=== PATIENT | female | born 1980 | race Caucasian/White ===

== ENCOUNTER 2020-08-27 13:06 | Outpatient (CLI) | payer BC, SELFPAY ==
--- NOTE | ~2020-08-27 | MM_ITS ---
EXAMINATION: MM screening yinka BI w madiha HISTORY: Screening mammogram, family history of breast cancer in her mother. TECHNIQUE: Craniocaudal and mediolateral oblique 3-D tomosynthesis images were obtained and synthetic 2-D images were generated. CAD analysis was submitted and interpreted. COMPARISON: 05/21/2019, 12/09/2017 BREAST PARENCHYMAL COMPOSITION: The breasts are heterogeneously dense, which may obscure small masses . FINDINGS: There is no evidence of suspicious mass, calcification, or architectural distortion to sugg est malignancy in either breast. There has been no suspicious interval change. IMPRESSION: 1. No mammographic evidence of malignancy. 2. Recommend routine screening mammography in one year. BI-RADS Category 1: Negative Reviewed, dictated and finalized at location A. OR FRONT END WEB DEVELOPER
== END 2020-08-27 13:07 | disposition home or self-care (01) ==
PROVIDERS: PCP Nurse Practitioner Family; Visit Provider Nurse Practitioner Family
DX: Z12.31 Encounter for screening mammogram for malignant neoplasm of breast (principal)
CPT/HCPCS: 77063; 77067

== ENCOUNTER 2021-04-27 09:04 | Outpatient (CLI) | payer BC, SELFPAY ==
--- NOTE | ~2021-04-27 | XR_ITS ---
EXAMINATION: XR UGIAC w barium swallow DATE: 04/27/2021 09:40 INDICATION: Reflux. Dysphagia. TECHNIQUE: The patient drank thick barium, gas-producing crystals, and thin barium. Fluoroscopy of th e esophagus, stomach, and proximal small bowel was performed. Fluoroscopy exposure time was 0.6 minut es. The total number of images was 281. Total dose-area product was 2.679 Gy-cm^2. COMPARISON: CT abdomen 01/05/2004 FINDINGS: There is no mass or stricture of the esophagus. Esophageal motility is normal. There is no hiatal hernia. There was no gastroesophageal reflux with provocative maneuvers. The stomach and proxi mal small bowel show normal folding patterns. IMPRESSION: 1. Normal upper gastrointestinal series and esophagram. Reviewed, dictated and finalized at location A.
== END 2021-04-27 09:05 | disposition home or self-care (01) ==
PROVIDERS: PCP Nurse Practitioner Family; Visit Provider Surgery
DX: K44.9 Diaphragmatic hernia without obstruction or gangrene (principal)
CPT/HCPCS: 74246

== ENCOUNTER 2021-06-05 01:33 | Day surgery (SDC) | payer BC, SELFPAY ==
[2021-05-25 13:29] VITALS: BMI 33.8
[2021-06-05 06:51] VITALS: BP 128/85; PULSE 91; RESP 16; TEMP 35.8; O2SAT 99; BMI 36.2
[2021-06-05] MEDS: LACTATED RINGERS 1,000 ML 150 ML IV CONT (07:06)
--- NOTE | 2021-06-05 07:21 | WPDANESEPPF ---
Anes - Initial Pre Proc Eval Procedure: Operation Date: 06/05/21 08:00 Proposed Procedures p Esophagogastroduodenoscopy - Alejo Snell MD Date/Time: 06/05/21 07:21 Surgeon: Alejo Snell MD Pre Op Diagnosis: GERD, dysphagia Patient Data Age: 40 Gender: F Height: 1.57 m Weight: 89.8 kg Last Vital Signs Temp 35.8 C L 06/05/21 06:51 Pulse 91 06/05/21 06:51 Resp 16 06/05/21 06:51 BP 128/85 06/05/21 06:51 Pulse Ox 99 06/05/21 06:51 Allergies Allergy/AdvReac Type Severity Reaction Status Date / Time mushroom Allergy Severe Swelling Verified 06/05/21 06:51 shellfish derived Allergy Severe Anaphylaxis Verified 06/05/21 06:51 Penicillins Allergy Unknown Swelling, Verified 06/05/21 06:51 Itching Honey Bee Allergy Severe SWELLING,IT Uncoded 06/05/21 06:51 CH PLASTIC TAPE Allergy Unknown Itching Uncoded 06/05/21 06:51 Home Medications Medication Instructions Recorded Confirmed Type omeprazole magnesium 20 mg 20 mg PO DAILY #30 tablet 04/17/21 06/05/21 Rx tablet,delayed release rimegepant [Nurtec ODT] 75 mg PO PRN PRN 05/25/21 06/05/21 History Patient hx anesthesia problems: none Family hx anesthesia problems: none Results Review: All pre-operative results and documents have been reviewed as part of the pre-operative evaluation. [facility] Past Medical History Medical History High cholesterol Surgical History Surgical History History of appendectomy OA 2004 History of salpingectomy Bilateral fallopian tube removal 2016 OA Family History Family History Father Diabetes mellitus Heart disease Lung cancer Mother Breast cancer Social History Social History Years smoked: 15 Smoking status: Light tobacco smoker Tobacco type: cigarettes Alcohol intake: never Substance use: never Substance use type: does not use Living arrangements: with family Additional occupation/education comments: [employer] Spiritual care concerns: No Anes - Eval Final PreProcedure Day of Procedure 06/05/21 07:21 Patient weight: obese Heart: regular rate and rhythm Lungs: clear to auscultation Airway: Mallampati scale class II Neurological: alert and oriented Last oral intake: >/= 8 hours ASA classification: II Emergent: no Anesthetic plan: proceed Anesthesia type and monitoring: general GIVS and standard monitoring Results Review: All pre-operative results and documents have been reviewed as part of the pre-operative evaluation. Informed Consent: The patient's anesthetic plan and its attendant risks and benefits were discussed with the patient/family/POA. Questions were solicited and answers provided to the satisfaction of the patient/family/POA.
--- NOTE | 2021-06-05 07:45 | PM.HPGS ---
History of Present Illness History of Present Illness Consent: Risks, benefits, and alternatives have been discussed and questions answered. Patient agrees to proceed with procedure. Chief complaint: GERD, dysphagia Narrative: Zulma Chapa is a 40 year old female with dysphagia, MRI abdomen showed hiatal hernia however UGI series was described as normal, never had EGD. PPI did not make much of difference Review of Systems Constitutional: Constitutional: Denies headache(s) and Denies weakness Eyes: Eyes: Denies blurry vision ENT: Reports Normal hearing present, Denies headache(s) and Denies neck pain Cardiovascular: Cardiovascular: Denies chest pain and Denies dyspnea Respiratory: Respiratory: Denies dyspnea Gastrointestinal: Gastrointestinal: Reports no additional gastrointestinal complaints Genitourinary: Genitourinary: Denies dysuria Musculoskeletal: Musculoskeletal: Denies neck pain Integumentary/Breasts: Skin/Breast: Denies dry skin Neurologic: Reports Normal hearing present, Denies headache(s) and Denies weakness Psychiatric: Psychiatric: Denies anxiety Endocrine: Endocrine: Denies change in body appearance Hematologic/Lymphatic: Hematologic/Lymphatic: Denies easy bleeding Allergic/Immunologic: Allergic/Immunologic: Denies urticaria PMFSH Past Medical History Medical History High cholesterol Surgical History Surgical History History of appendectomy OA 2004 History of salpingectomy Bilateral fallopian tube removal 2016 OA Family History Family History Father Diabetes mellitus Heart disease Lung cancer Mother Breast cancer Social History Social History Years smoked: 15 Smoking status: Light tobacco smoker Tobacco type: cigarettes Alcohol intake: never Substance use: never Substance use type: does not use Living arrangements: with family Additional occupation/education comments: [employer] Spiritual care concerns: No Meds Home Medications and Allergies Home Medications Medication Instructions Recorded Confirmed Type omeprazole magnesium 20 mg 20 mg PO DAILY #30 tablet 04/17/21 06/05/21 Rx tablet,delayed release rimegepant [Nurtec ODT] 75 mg PO PRN PRN 05/25/21 06/05/21 History Allergies Allergy/AdvReac Type Severity Reaction Status Date / Time mushroom Allergy Severe Swelling Verified 06/05/21 06:51 shellfish derived Allergy Severe Anaphylaxis Verified 06/05/21 06:51 Penicillins Allergy Unknown Swelling, Verified 06/05/21 06:51 Itching Honey Bee Allergy Severe SWELLING,IT Uncoded 06/05/21 06:51 CH PLASTIC TAPE Allergy Unknown Itching Uncoded 06/05/21 06:51 Vital Signs Vital Signs - 24 hr 06/05/21 06:51 Temperature 96.5 F L Pulse Rate 91 Respiratory Rate 16 Blood Pressure 128/85 Pulse Oximetry 99 Exam Const: General: comfortable and no acute distress HENMT: General nose exam: Normal nares present Eyes: General: appearance normal, both eyes and all related structures Neck: Neck: no JVD Resp: Auscultation: clear to auscultation bilaterally Cardio: Rate: regular rate Rhythm: regular rhythm GI: Inspection: non-distended GI Palp: Yes Soft to palpation Skin: General skin exam: normal color Neuro: General: gait normal Speech: normal speech Extrem: General: normal to inspection Psych: Mental Status: mental status grossly normal Assessment and Plan Assessment and plan (1) Dysphagia: Code(s): R13.10 - Dysphagia, unspecified Status: Acute Assessment and Plan: egd to assess, will get biopsies
[2021-06-05 08:10] VITALS: BP 146/85; PULSE 108; RESP 17; O2SAT 97
[2021-06-05 08:20] VITALS: BP 126/85; PULSE 88; RESP 13; O2SAT 98
[2021-06-05 08:30] VITALS: BP 117/92; PULSE 89; RESP 18; O2SAT 99
== END 2021-06-05 08:39 | disposition home or self-care (01) ==
PROVIDERS: PCP Nurse Practitioner Family; Visit Provider Internal Medicine Gastroenterology
PROC: 0DJ08ZZ Inspection of Upper Intestinal Tract, Via Natural or Artificial Opening Endoscopic (ICD-10-PCS; CPT 43235; principal; 2021-06-05 08:00)
DX: R13.19 Other dysphagia (principal); K44.9 Diaphragmatic hernia without obstruction or gangrene; K22.2 Esophageal obstruction; K29.70 Gastritis, unspecified, without bleeding; K21.9 Gastro-esophageal reflux disease without esophagitis; E78.00 Pure hypercholesterolemia, unspecified; F17.290 Nicotine dependence, other tobacco product, uncomplicated; E66.9 Obesity, unspecified; Z68.36 Body mass index [BMI] 36.0-36.9, adult
CPT/HCPCS: 43249; 43239; 88305; C1726; J2704; J7120

== ENCOUNTER 2022-08-16 14:07 | Outpatient (CLI) | payer BC, SELFPAY ==
--- NOTE | ~2022-08-16 | MMUS_ITS ---
EXAMINATION: MM diagnostic yinka BI w madiha, US breast BI complete HISTORY: Referring physician reportedly palpated a right breast lump patient is unsure of location. P atblanca's mother and grandmother had breast cancer. TECHNIQUE: ML, MLO and CC 3-D tomosynthesis images of both breasts were performed and synthetic 2-D i mages were generated. CAD analysis was submitted and interpreted. High resolution bilateral complete breast ultrasound including all 4 quadrants and subareolar areas was performed. COMPARISON: 05/21/2019, 12/09/2017 bilateral screening mammogram examinations BREAST PARENCHYMAL COMPOSITION: There are scattered areas of fibroglandular density. FINDINGS: MAMMOGRAPHIC FINDINGS: No suspicious mass or architectural distortion, malignant calcification, skin thickening or retractio n or significant new or developing density is detected. ULTRASOUND: No suspicious mass or shadowing of either breast is detected. Right breast: 12:00 1 cm from nipple: 3.4 x 5.3 x 5.5 mm simple cyst with through transmission posterior enhancemen t Left breast: 2.8 x 3.6 mm cyst IMPRESSION: 1. No mammographic evidence of malignancy 2. Routine annual mammographic screening is recommended. BIRADS Category 2: Benign Reviewed, dictated and finalized at location A. NRY SUPERVISOR IMPRESSION: 1. No mammographic evidence of malignancy 2. Routine annual mammographic screening is recommended. BIRADS Category 2: Benign
== END 2022-08-16 14:08 | disposition home or self-care (01) ==
LOC: ANHIMG 14:11
PROVIDERS: PCP Nurse Practitioner Family; Visit Provider Nurse Practitioner
DX: N63.0 Unspecified lump in unspecified breast (principal); Z80.3 Family history of malignant neoplasm of breast; N60.02 Solitary cyst of left breast
CPT/HCPCS: 76641; 77062; 77066; G0279

== ENCOUNTER 2024-07-05 13:25 | Emergency (ER) | payer OTHER, SELFPAY ==
--- NOTE | ~2024-07-05 | XR_ITS ---
EXAMINATION: XR lumbar spine 2-3V DATE: 07/05/2024 14:41 INDICATION: Low back and left hip pain TECHNIQUE: Anteroposterior and lateral views of the lumbar spine, and cone-down lateral view of the l umbosacral junction were obtained. COMPARISON: None. FINDINGS: 14 degrees lumbar dextroscoliosis. Sagittal alignment is normal. Vertebral body heights are normal. M ild left-sided disc height loss at L1-L2 through L3-L4. Developmentally unfused S1 spinous process. S urgical clip in the right lower quadrant. Lung bases are clear with no pleural effusion. Heart size i s normal. IMPRESSION: 1. 14 degrees lumbar dextroscoliosis with mild spondylosis. Reviewed, dictated and finalized at location B. BOILER
[2024-07-05 13:51] VITALS: BP 141/85; PULSE 119; RESP 16; TEMP 36.9; O2SAT 98
--- NOTE | 2024-07-05 14:17 | ED.BACK ---
HPI - Back Pain/Injury General Chief Complaint: Back Pain/Injury Stated Complaint: back and hip pain Time Seen by Provider: 07/05/24 14:17 Source: patient Mode of arrival: ambulatory Limitations: no limitations History of Present Illness HPI Narrative: 43 yo female presented for complaint of low back pain for 2 days and left hip pain for 3 weeks. States the hip pain started after painting basement. States the back pain is worse when she rises from a sitting to standing position. States feels better when she has been standing for a few moments. Pain to the back is described as ?locked up. ? She is taking ibuprofen and Aleve. She sees a chiropractor weekly, last saw them 3 days ago. Related Data Home Medications ?Medication ?Instructions ?Recorded ?Confirmed ?Last Taken ?Type rimegepant 75 mg disintegrating 75 mg PO PRN PRN Migraine Headache 05/25/21 03/23/24 Unknown History tablet (Nurtec ODT) zavegepant 10 mg/actuation nasal 10 mg intranasal ONCE PRN 09/21/23 03/23/24 Unknown History spray (Zavzpret) Allergies Allergy/AdvReac Type Severity Reaction Status Date / Time mushroom Allergy Severe Swelling Verified 07/05/24 14:18 shellfish derived Allergy Severe Anaphylaxis Verified 07/05/24 14:18 Penicillins Allergy Unknown Swelling, Verified 07/05/24 14:18 Itching Honey Bee Allergy Severe SWELLING,IT Uncoded 03/23/24 09:00 CH PLASTIC TAPE Allergy Unknown Itching Uncoded 03/23/24 09:00 Review of Systems Review of Systems: CONSTITUTIONAL: Denies body aches, fever, chills EYES: Denies visual changes CARDIOVASCULAR: Denies chest pain, palpitations, or edema. RESPIRATORY: Denies cough or dyspnea. GASTROINTESTINAL: Denies abdominal pain, nausea, vomiting, or diarrhea. SKIN: Denies rash, itching, or wounds. MUSCULOSKELETAL: reports back pain, left hip pain NEUROLOGIC: Denies numbness, tingling, or weakness. All systems reviewed & are unremarkable except as noted in HPI and below PMFSH Past Medical History Medical History Migraine Hard of hearing High cholesterol Surgical History Surgical History H/O lumpectomy History of salpingectomy Bilateral fallopian tube removal 2016 OA History of appendectomy OA 2004 Family History Family History Father Diabetes mellitus Heart disease Lung cancer Mother Breast cancer Social History Social History Social History: Patient is very confident filling out medical forms. 03/23/24 Years smoked: 15 Smoking status: Light tobacco smoker Tobacco type: cigarettes Alcohol intake: never Substance use: never Substance use type: does not use Do You Feel Safe in your Home?: Yes Lack of Transportation: No Lack of Food: Never True Current Housing: I Have Housing Concerned About Future Housing: No Difficulty Paying Gas/Electric Bills: No Difficulty Paying for Meds: No Currently Unemployed: No Education: High School Diploma/GED Difficulty w/ Childcare or Family Care: No Living arrangements: with family Occupation/Education: occupation Additional occupation/education comments: [employer] Spiritual care concerns: No Agree to blood products: Yes Comments At time of signature, I have reviewed and agree with nursing past medical, surgical, social and family history unless otherwise noted. Please see nursing chart for further information. There is no relevant family history pertinent to the presenting complaint Exam Narrative: GENERAL: Well-appearing CHEST: Speaks in full sentences. No respiratory distress. HEART: Regular rate and rhythm. Normal and equal peripheral pulses. MUSC: No Vertebral point tenderness. Reports tenderness across mid low back and left posterior hip with palpation; nontender anterior hip. BLEs with normal strength and sensation, normal range of motion. endorses pain to low back and left hip with movement. No ecchymosis, No open wounds, or obvious deformity; alignment normal, pulse palpable and equal bilaterally, skin warm, dry, pink. Capillary refill less than 3 seconds. Gait steady, slow. SKIN: Warm, dry, no rash. NEURO: Alert and oriented x3. Back/Spine/Pelvis: Back/spine/pelvis image:  1. location of pain Course Course Emergency Course: Patient is aware of diagnosis, understands and agrees to treatment plan. Anticipatory guidance given. Patient agrees to follow-up as directed and is aware of reasons to seek care at the emergency department. Portions of this record may have been created with voice recognition software Level of Care: [facility] Visit Vital Signs Vital signs: Vital Signs Temperature 98.4 F 07/05/24 13:51 Pulse Rate 119 H 07/05/24 13:51 Respiratory Rate 16 07/05/24 13:51 Blood Pressure 141/85 H 07/05/24 13:51 Pulse Oximetry 98 07/05/24 13:51 Temperature 98.4 F 07/05/24 13:51 Pulse Rate 119 H 07/05/24 13:51 Respiratory Rate 16 07/05/24 13:51 Blood Pressure 141/85 H 07/05/24 13:51 Pulse Oximetry 98 07/05/24 13:51 Reviewed MDM - Back Pain/Injury MDM Narrative Medical decision making narrative: Xray reviewed with pt. Reviewed Rx. Advised supportive measures and s/s to go to the ER. Pt is stable and appropriate for outpt treatment and follow up with pcp. Differential Diagnosis Differential diagnosis: Likely lumbar radiculopathy, sciatica, strain of lumbar region, renal colic, pyelonephritis and discitis Imaging Data Radiologist's impression: Patient: Zulma Chapa : 1980 MR#: [id number] Age: 43 Acct:[id number] Loc: [facility] ADM Date: 07/05/24Attending Dr: Ordering Physician: Elle Bolivar APRN Date of Service: 07/05/24 Procedure(s): XR lumbar spine 2-3V Accession Number(s): [id number] cc: Luiza Riojas APRN; Elle Bolivar APRN~ EXAMINATION: XR lumbar spine 2-3V DATE: 07/05/2024 14:41 INDICATION: Low back and left hip pain TECHNIQUE: Anteroposterior and lateral views of the lumbar spine, and cone-down lateral view of the lumbosacral junction were obtained. COMPARISON: None. FINDINGS: 14 degrees lumbar dextroscoliosis. Sagittal alignment is normal. Vertebral body heights are normal. Mild left-sided disc height loss at L1-L2 through L3-L4. Developmentally unfused S1 spinous process. Surgical clip in the right lower quadrant. Lung bases are clear with no pleural effusion. Heart size is normal. IMPRESSION: 1. 14 degrees lumbar dextroscoliosis with mild spondylosis. Discharge Plan Discharge Clinical Impression: Lumbar radiculopathy Patient Disposition: Home, Self-Care Condition: Stable Instructions: Acute Low Back Pain (ED), Lumbar Radiculopathy (ED) Additional Instructions: Please follow up with your Primary Care Doctor within 48-72 hours - call for an appointment. Avoid lifting. pushing. pulling, or anything that worsens the pain. Walking and other gentle exercising several times a week has been shown to improve back pain; bed rest is not recommended. Take Motrin 800mg every 6-8 hours with food for the next 2-3 days, along with Tylenol 1000mg every 8 hours Take muscle relaxers every 8 hours as needed for muscle spasm- do not drive or make any important decisions while on this medication for it can make you drowsy. Take steroid as directed Over the counter pain cream like icy/hot or biofreeze, or Salon pas/lidocaine 4% patch. You may apply heat or cold to the area as needed. If you experience any worsening pain, swelling, numbness, weakness please go to ER. Contact your doctor or go to the emergency department if you develop problems with bladder or bowel function, weakness or loss of feeling in one or both of your legs, or any other serious concerns. Patient Language: Luxembourger Prescriptions: New cyclobenzaprine 10 mg tablet 10 mg PO TID PRN (Reason: muscle spasm) Qty: 10 0RF methylprednisolone [Medrol (King)] 4 mg tablets,dose pack See Rx Instructions .ROUTE .COMPLEX Qty: 21 0RF Rx Instructions: orally per package directions No Action Zavzpret 10 mg/actuation spray,non-aerosol 10 mg intranasal ONCE PRN Rx Instructions: administer into one nostril as a single dose Wegovy 2.4 mg/0.75 mL pen injector 2.4 mg subcut WEEKLY Qty: 3 11RF Nurtec ODT 75 mg tablet,disintegrating 75 mg PO PRN PRN (Reason: Migraine Headache) Follow-up/Referrals: Luiza Riojas APRN [Primary Care Provider] -
== END 2024-07-05 15:24 | disposition home or self-care (01) ==
PROVIDERS: Emergency Provider Nurse Practitioner Family; PCP Nurse Practitioner Family
DX: M54.16 Radiculopathy, lumbar region (principal); F17.210 Nicotine dependence, cigarettes, uncomplicated; E78.00 Pure hypercholesterolemia, unspecified
CPT/HCPCS: 72100; 99213; G0463